=== PATIENT | male | born 1980 | race Caucasian/White ===

== ENCOUNTER 2023-09-15 14:42 | Emergency (ER) | payer SELFPAY ==
[2023-09-15 14:43] VITALS: BP 119/95; PULSE 63; RESP 19; TEMP 36.2; O2SAT 100; BMI 20.4
--- NOTE | 2023-09-15 15:16 | CT_ITS ---
EXAM: CT ABDOMEN AND PELVIS WITHOUT INTRAVENOUS CONTRAST CLINICAL INDICATION: Pain TECHNIQUE: Helically acquired images were obtained of the abdomen and pelvis without intravenous contrast. This CT exam was performed using one or more of the following dose reduction techniques: automated exposure control, adjustment of the mA and/or kV according to patient size, and/or use of iterative reconstruction technique. COMPARISON: 04/17/2015 FINDINGS: LOWER THORAX: Unremarkable. Lung bases are clear. No cardiomegaly. No significant pericardial effusion. ABDOMEN: LIVER: Unremarkable. Homogeneous. GALLBLADDER AND BILE DUCTS: Unremarkable. No calcified gallstones. No gallbladder distention or wall edema. No intra- or extrahepatic biliary ductal dilation. PANCREAS: Unremarkable. No focal cystic mass. SPLEEN: Unremarkable. Normal size without focal cystic or solid mass. ADRENALS: Unremarkable. No nodules. KIDNEYS AND URETERS: There is mild left-sided hydronephrosis and hydroureter. There is a 5 mm stone in the bladder at the level of the left ureteral orifice. There are small nonobstructing calyceal stones in both kidneys. Normal renal size and position. STOMACH AND BOWEL: Unremarkable. No stomach or bowel distention. No focal inflammatory change. PELVIS: APPENDIX: No evidence of acute appendicitis. BLADDER: Unremarkable. REPRODUCTIVE: Unremarkable as visualized. No mass. ABDOMEN and PELVIS: INTRAPERITONEAL SPACE: Unremarkable. No ascites or other fluid collection. No free air. BONES/JOINTS: Unremarkable. No suspicious lytic or blastic abnormality. SOFT TISSUES: There is increasing intramuscular lipoma in the left paraspinal musculature that measures 3.7 x 1.8 x 8.4 cm on today''s exam. No discrete abdominal or pelvic wall hernia. VASCULATURE: Unremarkable. Abdominal aorta is non-dilated. LYMPH NODES: Unremarkable. No enlarged lymph nodes. CT/Abdomen/Pelvis without Cont IMPRESSION: Obstruction of the left collecting system due to a 5 mm stone in the bladder at the level of the left ureteral orifice. There is mild to moderate left-sided hydronephrosis and hydroureter. Electronically Signed: Reji Lord MD at 16:54 EDT ,
--- NOTE | 2023-09-15 15:23 | EDS_ITS ---
HPI <VINAY Almazan - Last Filed: 09/15/23 17:07> History of Present Illness Chief Complaint: Flank Pain Narrative Narrative: Patient is a 43-year-old male with history of heroin abuse, who is currently on Suboxone and has been for 4 years. Patient does have history of kidney stones. He was seen in the ER last time greater than 2 years. Patient states that has been having left-sided flank pain on and off over the last week. He notices that he has some small crystals in the toilet. However today, the pain to the left flank is getting worse and he is here for evaluation. He denies any fever or chills, states to have some nausea. [facility] <VINAY Almazan - Last Filed: 09/15/23 17:07> [facility] Medical History (Updated 09/15/23 @ 17:05 by VINAY Almazan) History of kidney stones Substance abuse Home Medications buprenorphine 8 mg-naloxone 2 mg sublingual film (Suboxone) 8 ea sublingual BID 07/22/13 [History Last Taken 07/22/13] Ibuprofen [Motrin] 800 mg PO TID PRN PRN Pain #20 tabs 01/27/17 [Rx Last Taken Unknown] clindamycin HCl 150 mg capsule 300 mg (2 x 150 mg) PO 4X/DAY ##80 01/27/17 [Rx Last Taken Unknown] ibuprofen 600 mg tablet 600 mg PO Q6H PRN PRN pain #20 TABLETS 09/15/23 [Rx Last Taken Unknown] tamsulosin 0.4 mg capsule (Flomax) 0.4 mg PO DAILY #14 caps 09/15/23 [Rx Last Taken Unknown] Allergy/AdvReac Type Severity Reaction Status Date / Time No Known Allergies Allergy Verified 01/27/17 11:46 Social History Smoking Status: Current every day smoker tobacco type: cigarettes ROS <VINAY Almazan - Last Filed: 09/15/23 17:07> ROS ED ROS Narrative Constitutional: Negative for fever, chills, weight loss, weakness Eyes: Negative for vision loss, vision change, double vision ENT: Negative for any sore throat, ear pain, congestion Cardiovascular: Negative for any chest pain, tightness, palpitations Respiratory: Negative for any cough, sputum production, hemoptysis, dyspnea, dyspnea on exertion, orthopnea Gastrointestinal: Negative for any abdominal pain, vomiting, diarrhea, constipation, blood in stool, blood in vomit. Positive for left-sided flank pain : Negative for any urinary frequency, dysuria, retention, blood in urine Muscle skeletal: Negative for any neck pain, back pain Neurological: Negative for any headache, syncope, dizziness Skin: Negative for any rashes, itching, abrasions, lacerations Psychiatric: Negative for any depression, anxiety, stress, suicidal ideation, homicidal ideation Hematologic: Negative for any excessive bruising, easy bleeding EXAM <VINAY Almazan - Last Filed: 09/15/23 17:07> Physical Exam Narrative Exam Narrative: Vital signs reviewed. HEET: Head normocephalic atraumatic, TMs clear bilaterally. Posterior pharynx is clear, moist mucous membranes. Nares clear bilaterally. Neck: Supple with no lymphadenopathy or tenderness. No signs of meningismus. Cardiac: Regular rate and rhythm no murmurs gallops or rubs, equal peripheral pu lses bilaterally. Respiratory: Lungs clear to auscultation bilaterally. No chest tenderness. Abdomen: Soft, nontender, nondistended. No abdominal bruit or pulsatile masses. No hepatosplenomegaly Extremities: No peripheral edema, no signs of gross trauma or deformity. Active full range of motion of all extremities. Neuro: Cranial nerves II through XII intact, no focal neurological deficits. Skin: Clean dry and intact with no rash, purpura, petechiae, vesicles or pustules. Backs/flank: No CVA tenderness, no midline spinal tenderness, no deformity. Patient does have some tenderness to the left flank, no CVA tenderness. Psych: Normal mood and affect. No SI, HI or acute psychosis. Const Vital Signs: 09/15/23 14:43 09/15/23 16:42 09/15/23 17:21 Temperature 97.2 F L 97.5 F L Temperature Source Temporal Pulse Rate 63 62 69 Respiratory Rate 19 H 16 16 Blood Pressure 119/95 H 118/67 118/72 Blood Pressure Mean 103 84 87 Pulse Ox 100 97 99 Oxygen Delivery Method Room Air Room Air Positive well nourished and well developed General Appearance ED: well developed <Dr. Migue Carlson DO - Last Filed: 09/15/23 17:23> Physical Exam Const Vital Signs: 09/15/23 14:43 09/15/23 16:42 09/15/23 17:21 Temperature 97.2 F L 97.5 F L Temperature Source Temporal Pulse Rate 63 62 69 Respiratory Rate 19 H 16 16 Blood Pressure 119/95 H 118/67 118/72 Blood Pressure Mean 103 84 87 Pulse Ox 100 97 99 Oxygen Delivery Method Room Air Room Air [facility] <Gurmeet BledsoeVINAY - Last Filed: 09/15/23 17:07> [facility] Lab Data Labs: Laboratory Results - last 24 hr 09/15/23 15:30 WBC 8.8 RBC 4.86 Hgb 14.5 Hct 43.7 MCV 89.9 MCH 29.8 MCHC 33.2 RDW Std Deviation 41.8 RDW Coeff of Neto 12.6 Plt Count 280 MPV 9.8 Immature Gran % (Auto) 0.300 Neut % (Auto) 62.4 Lymph % (Auto) 26.6 Mineral % (Auto) 6.6 Eos % (Auto) 2.6 Baso % (Auto) 1.5 H Absolute Neuts (auto) 5.5 Absolute Lymphs (auto) 2.33 Nucleated RBC % 0 Sodium 139 Potassium 4.5 Chloride 108 H Carbon Dioxide 30.0 Anion Gap 1 L BUN 10 Creatinine 0.96 Estim Creat Clear Calc 96.38 Est GFR (MDRD) Af Amer 109 Est GFR (MDRD) Non-Af 90 BUN/Creatinine Ratio 10.4 Glucose 114 H Calcium 9.2 Total Bilirubin 0.30 AST 18 ALT 21 Alkaline Phosphatase 60 Total Protein 7.3 Albumin 3.9 Globulin 3.4 Albumin/Globulin Ratio 1.1 Lipase 47 Urine Color Yellow Urine Clarity Clear Urine pH 6.0 Ur Specific [place] 1.020 Urine Protein 30 H Urine Glucose (UA) Normal Urine Ketones 5 H Urine Occult Blood 250 H Urine Nitrite Negative Urine Bilirubin Negative Urine Urobilinogen 1 H Ur Leukocyte Esterase 25 H Urine RBC 10-25 SEEN Urine WBC 0-5 SEEN Ur Squamous Epith Cells 0-5 SEEN Urine Bacteria RARE Urine Mucus RARE Radiography Diagnostic Testing: Clinical Impression(s) from Imaging Studies Abdomen/Pelvis CT 09/15/23 15:16 IMPRESSION: Obstruction of the left collecting system due to a 5 mm stone in the bladder at the level of the left ureteral orifice. There is mild to moderate left-sided hydronephrosis and hydroureter. Electronically Signed: Reji Lord MD at 16:54 EDT , Treatment and Re-Evaluation :: Differential diagnosis includes however is not limited to: Obstructing uropathy, UTI, STI, muscle strain, infected kidney stone Patient appears to be in no obvious respiratory distress, patient's vital signs are stable. Patient presents to the emerged part with left-sided flank pain that been ongoing for the last week. Patient will receive a kidney stone workup, patient received a CT scan of the abdomen pelvis without contrast, IV fluids IV Zofran and Toradol. Patient will receive laboratory values. All radiologic examinations were read, reviewed by the emergency department attending. From these reads, a plan of care will be put in place. Patient on reevaluation was feeling much better. Patient's laboratory values showed normal CBC, patient's chemistries were unremarkable, lipase was negative. Patient's urinalysis did show some hematuria however no infection. CT scan of the abdomen pelvis without shows obstruction of the left collecting system due to a 5 mm stone in the bladder at the level of the left ureteral orifice. There is mild to moderate left-sided hydronephrosis. At this time, I do believe the patient needs a follow-up with urology secondary to his history of kidney stones, he will be placed on ibuprofen as well as Flomax. We are not going to do any narcotic pain medicine secondary to patient being on Suboxone. Patient is agreeable, was instructed to return for any worsening pain fever chills nausea or vomiting. Patient stable for discharge. <Dr. Migue Carlson, DO - Last Filed: 09/15/23 17:23> [facility] Lab Data Labs: Laboratory Results - last 24 hr 09/15/23 15:30 WBC 8.8 RBC 4.86 Hgb 14.5 Hct 43.7 MCV 89.9 MCH 29.8 MCHC 33.2 RDW Std Deviation 41.8 RDW Coeff of Neto 12.6 Plt Count 280 MPV 9.8 Immature Gran % (Auto) 0.300 Neut % (Auto) 62.4 Lymph % (Auto) 26.6 Mineral % (Auto) 6.6 Eos % (Auto) 2.6 Baso % (Auto) 1.5 H Absolute Neuts (auto) 5.5 Absolute Lymphs (auto) 2.33 Nucleated RBC % 0 Sodium 139 Potassium 4.5 Chloride 108 H Carbon Dioxide 30.0 Anion Gap 1 L BUN 10 Creatinine 0.96 Estim Creat Clear Calc 96.38 Est GFR (MDRD) Af Amer 109 Est GFR (MDRD) Non-Af 90 BUN/Creatinine Ratio 10.4 Glucose 114 H Calcium 9.2 Total Bilirubin 0.30 AST 18 ALT 21 Alkaline Phosphatase 60 Total Protein 7.3 Albumin 3.9 Globulin 3.4 Albumin/Globulin Ratio 1.1 Lipase 47 Urine Color Yellow Urine Clarity Clear Urine pH 6.0 Ur Specific [place] 1.020 Urine Protein 30 H Urine Glucose (UA) Normal Urine Ketones 5 H Urine Occult Blood 250 H Urine Nitrite Negative Urine Bilirubin Negative Urine Urobilinogen 1 H Ur Leukocyte Esterase 25 H Urine RBC 10-25 SEEN Urine WBC 0-5 SEEN Ur Squamous Epith Cells 0-5 SEEN Urine Bacteria RARE Urine Mucus RARE I have personally performed a face to face assessment of the patient and have reviewed the EUSE[employer] Note. I performed a substantive portion of the visit including all aspects of the following. My siddiqui findings include: History: Patient presents with left flank pain that has been getting worse over the past few days. Patient states it has been intermittent over the past week and a half. Patient describes it as aching but sharp and stabbing at times. Patient states it is over the left flank and radiates into his left lower abdomen. Patient states it feels similar to prior kidney stone. Patient admits to some dark urine. Patient denies any dysuria or gross hematuria. Patient admits to some subjective chills but denies any fevers. Exam: Vital signs are stable. Patient is afebrile. Patient is in no acute distress. Oral mucosa is pink and moist. Neck is supple. Trachea is midline. There is no JVD. Heart was regular rate and rhythm. Lungs are clear and equal bilaterally. Abdomen is soft. Bowel sounds are normal. There is some mild left-sided tenderness. There is no rebound or guarding. There is some left CVA tenderness. Cranial nerves II through XII are intact. There are no focal motor or sensory deficits noted. Medical Decision Making: Differential diagnosis includes ureteral calculus, pyelonephritis, diverticulitis, gastroenteritis, bowel obstruction, perforation, and electrolyte abnormality. CT scan of the abdomen pelvis will be obtained to assess for ureteral calculus, pyelonephritis, and diverticulitis. CBC will be obtained to assess for leukocytosis and anemia. Comprehensive metabolic profile will be obtained to assess for hepatic function, renal function, and electrolyte abnormality. Urinalysis will be obtained to assess for urinary tract infection and hematuria. Lipase will be obtained to assess for pancreatitis. Patient was given IV fluids, Toradol, and Zofran. CBC was reviewed and was within normal limits. Comprehensive metabolic profile was reviewed and was within normal limits. Lipase was reviewed and was normal. Urinalysis was reviewed. Occult blood was 250 with 10-25 red blood cells. There is no evidence of urinary tract infection. CT scan of the abdomen pelvis was obtained. There is a 5 mm calculus noted in the bladder at the left ureteral orifice. There is moderate hydronephrosis and hydroureter. This was interpreted by the radiologist and was also independently reviewed by myself. Patient was advised of his findings. Patient was given prescription for Flomax and ibuprofen. Patient was given a referral for urology. Patient was instructed to follow-up in 5 to 7 days. Patient understood and was agreeable with the plan. All questions were answered. Radiography Diagnostic Testing: Clinical Impression(s) from Imaging Studies Abdomen/Pelvis CT 09/15/23 15:16 IMPRESSION: Obstruction of the left collecting system due to a 5 mm stone in the bladder at the level of the left ureteral orifice. There is mild to moderate left-sided hydronephrosis and hydroureter. Electronically Signed: Reji Lord MD at 16:54 EDT , Discharge Plan Triage Chief Complaint: Flank Pain ED Midlevel Provider: Gurmeet Bledsoe ED Provider: Migue Carlson Dx/Rx/DC Orders Clinical Impression: Kidney calculi Instructions: Kidney Stones: Your Evaluation, ED Kidney Stone with Pain Prescriptions: New ibuprofen 600 mg tablet 600 mg PO Q6H PRN PRN (Reason: pain) Qty: 20 0RF tamsulosin [Flomax] 0.4 mg capsule 0.4 mg PO DAILY Qty: 14 0RF No Action buprenorphine-naloxone [Suboxone] 1 EACH film 8 ea sublingual BID clindamycin HCl 150 MG capsule 300 mg PO 4X/DAY Qty: 80 0RF Ibuprofen [Motrin] 800 MG tablet 800 mg PO TID PRN PRN (Reason: Pain) Qty: 20 0RF Stand Alone Forms: ED Work / School Excuse Primary Care Provider: Care Physician,No Primary Referrals: Migue Bustos MD [Med Staff - Stogy Roller] - Nils Ferguson MD [Med Staff - Active Staff] - Activity Restrictions/Additional Instructions: Please follow-up with urology. Return here for worsening pain, fever chills nausea or vomiting. Disposition Disposition: Home, Self Care
[2023-09-15] MEDS: Ondansetron 4 MG/2 ML Vial IV (15:26)
[2023-09-15] MEDS: 0.9% Normal Saline (1000mL) 1,000 ML 1000 ML IV (15:26)
[2023-09-15] MEDS: Ketorolac 15 MG/ML Vial IV (15:26)
[2023-09-15 15:52] LABS: Color, Urine Yellow (Yellow); Glucose, Dipstick Normal (Normal); Ketone-Dipstick 5 mg/dl (Negative); Leukocyte Esterase-Dipstick 25 /ul (Negative); Nitrite-Dipstick Negative (Negative); Occult Blood-Urine 250 /ul (Negative); Protein-Dipstick 30 mg/dl (Negative); Urine Bilirubin Dipstick Negative (Negative); Urine Clarity Clear (Clear); Urine Urobilinogen 1 mg/dl (Normal)
[2023-09-15 15:54] LABS: Absolute Lymphocyte Count 2.33 X10^3/uL (0.83-4.51); Absolute Neutrophil Count 5.5 X10^3/uL (2.0-7.7); Basophil# 0.13 X10^3/uL; Basophil% 1.5 % (0-1); Eosinophil# 0.23 X10^3/uL; Eosinophils% 2.6 % (0-5); Hematocrit 43.7 % (40-54); Hemoglobin 14.5 g/dL (13.0-16.5); Lymphocyte # 2.33 X10^3/ul (0.83-4.51); Lymphocyte % 26.6 % (19-41); Mean Corp Hgb Conc 33.2 g/dL (32-36); Mean Corpuscular Hgb 29.8 pg (27.0-32.0); Mean Corpuscular Volume 89.9 fL (80-94); Mean Platelet Vol. 9.8 fl (6.2-12.0); Monocyte# 0.58 X10^3/uL; Monocyte% 6.6 % (0-10); NRBC Flagged by Analyzer 0 % (0-5); Neutrophil # 5.45 X10^3/uL (2.7-7.7); Neutrophil % 62.4 % (47-70); Platelet Count 280 K/mm3 (150-450); RBC Distribution Width CV 12.6 % (11.6-14.6); RBC Distribution Width SD 41.8 fl (35.1-43.9); Red Blood Count 4.86 M/mm3 (4.6-6.2); White Blood Count 8.8 K/mm3 (4.4-11.0)
[2023-09-15 16:04] LABS: Red Blood Cells-Urine 10-25 SEEN /hpf (0-5)
[2023-09-15 16:05] LABS: Bacteria RARE /hpf (None Seen); Mucous, Urine RARE /hpf (<or=2+); Squamous Epithelial Cells - UA 0-5 SEEN /hpf (0-5); White Blood Cells 0-5 SEEN /hpf (0-5)
[2023-09-15 16:12] LABS: ALB/GLOB Ratio 1.1 RATIO (0.9-2.4); AST(SGOT) 18 U/L (15-37); Alanine Aminotransfer ALT/SGPT 21 U/L (16-61); Albumin, Serum 3.9 g/dL (3.2-5.0); Alkaline Phosphatase 60 U/L (45-117); Anion Gap 1 (5-15); BUN 10 mg/dL (7-18); BUN/Creat Ratio 10.4 RATIO (10-20); Calcium,Total 9.2 mg/dL (8.5-10.1); Chloride 108 mmol/L (98-107); Creatinine, Serum 0.96 mg/dL (0.70-1.30); EST Glomerular Filtration Rate 90 mL/min (>60); Est Glom Filt Rate - Afr Amer 109 mL/min (>60); Estimated Creatinine Clearance 96.38 ml/min; Globulin 3.4 g/dL (2.2-4.2); Glucose 114 mg/dL (74-106); Lipase 47 U/L (13-75); Potassium 4.5 mmol/L (3.5-5.1); Protein, Total 7.3 g/dL (6.4-8.2); Sodium Level 139 mmol/L (136-145)
[2023-09-15 16:42] VITALS: BP 118/67; PULSE 62; RESP 16; O2SAT 97
[2023-09-15 17:21] VITALS: BP 118/72; PULSE 69; RESP 16; TEMP 36.4; O2SAT 99
== END 2023-09-15 17:24 | disposition home or self-care (01) ==
PROVIDERS: Nurse Practitioner; Emergency Provider Emergency Medicine; Visit Provider Emergency Medicine
DX: N13.2 Hydronephrosis with renal and ureteral calculous obstruction (principal); F17.210 Nicotine dependence, cigarettes, uncomplicated
CPT/HCPCS: 74176; 80053; 81001; 83690; 85025; 96361; 96374; 96375; 99283; J7030; J2405